=== PATIENT | female | born 1980 | race Caucasian/White ===

== ENCOUNTER 2018-06-03 09:33 | Observation (INO) | payer BC, OTHER ==
[2018-06-03 10:33] LABS: ADD MAN DIFF? NO
[2018-06-03 10:47] LABS: ADD UMIC YES; UR ASCORBIC ACID 20 mg/dL (NEGATIVE); UR BACTERIA FEW /HPF (NONE SEEN); UR BILIRUBIN (Dip) 1+ mg/dL (NEGATIVE); UR BLOOD (Dip) NEGATIVE (NEGATIVE); UR CLARITY SLIGHTLY CLOUDY (CLEAR); UR COLOR AMBER (YELLOW); UR GLUCOSE (Dip) NEGATIVE (NEGATIVE); UR KETONES (Dip) NEGATIVE (NEGATIVE); UR LEUKOCYTE ESTERASE (Dip) NEGATIVE Leu/ul (NEGATIVE); UR MUCUS MODERATE /HPF (NONE SEEN); UR NITRITE (Dip) NEGATIVE (NEGATIVE); UR RBC 0 /HPF (0-5); UR SPECIFIC GRAVITY (Dip) 1.032 (1.003-1.030); UR SQUAMOUS EPITHELIAL CELL MODERATE /HPF (FEW); UR TOTAL PROTEIN (Dip) 1+ mg/dl (NEGATIVE); UR UROBILINOGEN (Dip) 2+ mg/dL (NEGATIVE); UR WBC 1 /HPF (0-5)
[2018-06-03 10:54] LABS: BASOPHILS % 0.4 % (0.0-2.0); EOSINOPHILS # 0.1 10^3/ul (0.0-0.5); EOSINOPHILS % 0.7 % (0.0-7.0); HEMATOCRIT 39.3 % (37.0-47.0); HEMOGLOBIN 13.3 g/dl (12.0-16.0); LYMPHOCYTES # 1.4 10^3/ul (0.8-2.9); MEAN CORPUSCULAR HGB CONC 33.8 g/dl (32.0-37.0); MEAN CORPUSCULAR VOLUME 85.6 fl (82.0-101.0); MEAN PLATELET VOLUME 9.7 fl (7.4-10.4); MONOCYTE # 0.5 10^3/ul (0.3-0.9); MONOCYTES % 6.9 % (0.0-11.0); NEUTROPHIL # 5.2 10^3/ul (1.6-7.5); NEUTROPHILS % 72.2 % (39.0-77.0); PLATELET COUNT 312 10^3/UL (140-415); RED BLOOD COUNT 4.59 10^6/ul (4.20-5.40); RED CELL DISTRIBUTION WIDTH 13.2 % (11.5-14.5)
[2018-06-03 10:54] LABS: WHITE BLOOD COUNT 7.3 10^3/ul (4.8-10.8)
[2018-06-03 10:57] LABS: ALANINE AMINOTRANSFERASE 95 IU/L (13-69); ALBUMIN 4.2 g/dl (3.3-4.9); ALBUMIN/GLOBULIN RATIO 1.27; ALKALINE PHOSPHATASE 122 IU/L (42-121); ANION GAP 13 (5-13); ASPARTATE AMINO TRANSFERASE 43 IU/L (15-46); BILIRUBIN,INDIRECT 0.8 mg/dl (0-1.1); BILIRUBIN,TOTAL 0.8 mg/dl (0.2-1.3); BLOOD UREA NITROGEN 7 mg/dl (7-20); CARBON DIOXIDE 28 mmol/L (21-31); CHLORIDE 100 mmol/L (97-110); CREATININE 0.51 mg/dl (0.44-1.00); Estimated GFR > 60 mL/min (>60); GLUCOSE 88 mg/dl (70-220); LIPASE 48 U/L (23-300); POTASSIUM 4.7 mmol/L (3.5-5.1); SODIUM 141 mmol/L (135-144); TOTAL PROTEIN 7.5 g/dl (6.1-8.1)
[2018-06-03] MEDS: BISACODYL 10 MG SUPP PR (17:47)
[2018-06-03] MEDS: SOD CHLORIDE 0.9% 1,000 ML IV (17:47)
[2018-06-03] MEDS: MINERAL OIL 133 ML ENEMA PR (17:47)
[2018-06-03] MEDS: ACETAMINOPHEN 325 MG TAB PO (20:01)
[2018-06-04] MEDS: morphine SULFATE/PF (2 MG/2 ML) SYG IV ×2 (00:29→09:19)
[2018-06-04] MEDS ORDERED: NACL 0.9% 3 ML SYG IV (00:30)
[2018-06-04] MEDS: SOD CHLORIDE 0.9% 1,000 ML IV (00:30)
[2018-06-04] MEDS: DEXTROSE 5%-0.45% NACL 1,000 ML IV ×3 (01:33→18:12)
[2018-06-04 06:12] LABS: ADD MAN DIFF? NO
[2018-06-04 06:18] LABS: WHITE BLOOD COUNT 6.3 10^3/ul (4.8-10.8)
[2018-06-04 06:18] LABS: BASOPHILS % 0.3 % (0.0-2.0); EOSINOPHILS % 0.6 % (0.0-7.0); HEMOGLOBIN 11.4 g/dl (12.0-16.0); LYMPHOCYTES # 1.5 10^3/ul (0.8-2.9); LYMPHOCYTES % 23.5 % (15.0-51.0); MEAN CORPUSCULAR HEMOGLOBIN 28.9 pg (29.0-33.0); MEAN CORPUSCULAR HGB CONC 33.5 g/dl (32.0-37.0); MEAN CORPUSCULAR VOLUME 86.3 fl (82.0-101.0); MEAN PLATELET VOLUME 9.7 fl (7.4-10.4); MONOCYTE # 0.5 10^3/ul (0.3-0.9); MONOCYTES % 7.1 % (0.0-11.0); NEUTROPHIL # 4.3 10^3/ul (1.6-7.5); NEUTROPHILS % 67.9 % (39.0-77.0); PLATELET COUNT 251 10^3/UL (140-415); RED BLOOD COUNT 3.94 10^6/ul (4.20-5.40); RED CELL DISTRIBUTION WIDTH 13.4 % (11.5-14.5)
[2018-06-04 06:56] LABS: ALANINE AMINOTRANSFERASE 61 IU/L (13-69); ALBUMIN 3.6 g/dl (3.3-4.9); ALBUMIN/GLOBULIN RATIO 1.12; ALKALINE PHOSPHATASE 112 IU/L (42-121); ANION GAP 8 (5-13); ASPARTATE AMINO TRANSFERASE 35 IU/L (15-46); BILIRUBIN,INDIRECT 0.7 mg/dl (0-1.1); BILIRUBIN,TOTAL 0.7 mg/dl (0.2-1.3); BLOOD UREA NITROGEN 6 mg/dl (7-20); CALCIUM 9.6 mg/dl (8.4-10.2); CARBON DIOXIDE 25 mmol/L (21-31); CHLORIDE 104 mmol/L (97-110); CREATININE 0.51 mg/dl (0.44-1.00); Estimated GFR > 60 mL/min (>60); GLUCOSE 89 mg/dl (70-220); POTASSIUM 4.4 mmol/L (3.5-5.1); SODIUM 137 mmol/L (135-144); TOTAL PROTEIN 6.8 g/dl (6.1-8.1)
[2018-06-04] MEDS: ONDANSETRON 4 MG INJ IV (09:23)
[2018-06-04] MEDS ORDERED: metroNIDAZOLE 500 MG/NS (PMX) 100 ML IVPB (12:00)
[2018-06-04] MEDS: POLYETHYLENE GLYCOL 17 GM PACKET PO (12:50)
[2018-06-04] MEDS: metroNIDAZOLE 500 MG/NS (PMX) 100 ML IVPB ×2 (12:50→22:38)
[2018-06-04] MEDS: DOCUSATE SODIUM 250 MG CAP PO (12:50)
[2018-06-04] MEDS: ACETAMINOPHEN 325 MG TAB PO (17:51)
[2018-06-04] MEDS: PRENATAL VITAMIN PO (17:51)
[2018-06-05] MEDS: metroNIDAZOLE 500 MG/NS (PMX) 100 ML IVPB (05:55)
[2018-06-05 06:02] LABS: ADD MAN DIFF? NO
[2018-06-05 06:05] LABS: BASOPHILS % 0.2 % (0.0-2.0); EOSINOPHILS # 0.1 10^3/ul (0.0-0.5); HEMATOCRIT 30.9 % (37.0-47.0); HEMOGLOBIN 10.4 g/dl (12.0-16.0); LYMPHOCYTES # 1.4 10^3/ul (0.8-2.9); LYMPHOCYTES % 23.9 % (15.0-51.0); MEAN CORPUSCULAR HEMOGLOBIN 29.1 pg (29.0-33.0); MEAN CORPUSCULAR HGB CONC 33.7 g/dl (32.0-37.0); MEAN CORPUSCULAR VOLUME 86.3 fl (82.0-101.0); MEAN PLATELET VOLUME 10.1 fl (7.4-10.4); MONOCYTE # 0.4 10^3/ul (0.3-0.9); MONOCYTES % 6.8 % (0.0-11.0); NEUTROPHILS % 67.4 % (39.0-77.0); PLATELET COUNT 262 10^3/UL (140-415); RED BLOOD COUNT 3.58 10^6/ul (4.20-5.40); RED CELL DISTRIBUTION WIDTH 13.2 % (11.5-14.5)
[2018-06-05 06:05] LABS: WHITE BLOOD COUNT 5.9 10^3/ul (4.8-10.8)
[2018-06-05 06:39] LABS: ANION GAP 8 (5-13); BLOOD UREA NITROGEN 4 mg/dl (7-20); CALCIUM 9.2 mg/dl (8.4-10.2); CARBON DIOXIDE 22 mmol/L (21-31); CHLORIDE 105 mmol/L (97-110); CREATININE 0.42 mg/dl (0.44-1.00); Estimated GFR > 60 mL/min (>60); GLUCOSE 97 mg/dl (70-220); MAGNESIUM 1.9 mg/dl (1.7-2.5); PHOSPHORUS 3.3 mg/dl (2.5-4.9); POTASSIUM 3.8 mmol/L (3.5-5.1); SODIUM 135 mmol/L (135-144)
[2018-06-05] MEDS: DEXTROSE 5%-0.45% NACL 1,000 ML IV (06:39)
[2018-06-05] MEDS: PRENATAL VITAMIN PO (08:13)
[2018-06-05] MEDS: DOCUSATE SODIUM 250 MG CAP PO (08:13)
[2018-06-05] MEDS: POLYETHYLENE GLYCOL 17 GM PACKET PO (08:13)
[2018-06-05] MEDS: ACETAMINOPHEN 325 MG TAB PO (08:13)
== END 2018-06-05 13:07 | disposition home or self-care (01) ==
LOC: FTE 09:33 → PP2 06-04 22:09 → TEL 17:38
DX: O26.891 Other specified pregnancy related conditions, first trimester (principal); K56.7 Ileus, unspecified; O99.011 Anemia complicating pregnancy, first trimester; Z3A.11 11 weeks gestation of pregnancy; O09.511 Supervision of elderly primigravida, first trimester; O30.001 Twin pregnancy, unspecified number of placenta and unspecified number of amniotic sacs, first trimester
CPT/HCPCS: 36415; 74181; 76801; 76802; 80048; 80053; 81001; 83690; 83735; 84100; 84702; 85025; 86900; 86901; 87081; 87086; 99217; 99285-25; G0378